=== PATIENT | male | born 1980 | race Caucasian/White ===

== ENCOUNTER 2022-02-05 10:54 | Emergency (ER) | payer OTHER, SELFPAY ==
[2022-02-05 11:34] VITALS: BP 142/95; PULSE 83; RESP 16; TEMP 36.9; O2SAT 97
--- NOTE | 2022-02-05 11:55 | ED.URI ---
HPI - URI/Sore Throat General Chief Complaint: Upper Respiratory Infection Stated Complaint: soerthroat Time Seen by Provider: 02/05/22 11:55 History of Present Illness HPI Narrative: 41-year-old male presented for complaint of sore throat, fatigue and mild sinus congestion, onset today. Pain is worse with swallowing. Denies shortness of breath, wheezing, nausea, vomiting, diarrhea, fevers or chills. He denies sick contacts. He has taken Tylenol, ibuprofen, and Mucinex for symptoms. Related Data Allergies Allergy/AdvReac Type Severity Reaction Status Date / Time No Known Allergies Allergy Verified 02/05/22 11:54 Review of Systems Review of Systems: Per HPI [facility] Past Medical History Medical History HTN (hypertension) Exam Narrative: GENERAL: Ill-appearing, no acute distress. EYES: conjunctivae clear ENT: Mucous membranes moist. TM pearly brumfield with normal light reflex bilaterally; no tragal tenderness. Oropharynx severely erythematous Tonsils enlarged 3+ with exudate. No drooling, no hoarseness, no trismus, uvula midline. No tripod positioning, hot potato voice, or soft palate swelling. CHEST: Clear to auscultation, breath sounds equal. No respiratory distress, speaks in full sentences. HEART: Regular rate and rhythm. No murmur heard. SKIN: Warm, dry, no rash. NEURO: Alert and oriented x3. Course Course Emergency Course: Patient is aware of diagnosis, understands and agrees to treatment plan. Anticipatory guidance given. Patient agrees to follow-up as directed and is aware of reasons to seek care at the emergency department. Portions of this record may have been created with voice recognition software Level of Care: Express Care Visit Vital Signs Vital signs: Vital Signs Temperature 98.5 F 02/05/22 11:34 Pulse Rate 83 02/05/22 11:34 Respiratory Rate 16 02/05/22 11:34 Blood Pressure 142/95 H 02/05/22 11:34 Pulse Oximetry 97 02/05/22 11:34 Oxygen Delivery Room Air 02/05/22 11:34 Temperature 98.5 F 02/05/22 11:34 Pulse Rate 83 02/05/22 11:34 Respiratory Rate 16 02/05/22 11:34 Blood Pressure 142/95 H 02/05/22 11:34 Pulse Oximetry 97 02/05/22 11:34 Oxygen Delivery Room Air 02/05/22 11:34 MDM - URI/Sore Throat MDM Narrative Medical decision making narrative: Due to lack of resources, unable to test for influenza or rapid strep at this time. Patient verbalizes understanding. will treat empirically based on PE and CC.Advised supportive measures and signs and symptoms to go to the ER. Patient is appropriate for outpatient treatment and follow-up. Differential Diagnosis Differential diagnosis: Likely upper respiratory infection, viral infection, influenza and pharyngitis Discharge Plan Discharge Clinical Impression: Pharyngitis Patient Disposition: Home, Self-Care Condition: Stable Instructions: Antibiotic Form, Strep Throat (ED) Additional Instructions: - Take the antibiotic as directed. Fever and sore throat typically resolve within one to three days. Most patients can return to work after 12 to 24 hours of antibiotic therapy, provided you are fever free and otherwise well. -Eat and drink things that are easy to swallow, like soft foods, cool liquids, tea with honey, or popsicles . -Salt water gargles and/or may use topical anesthetic ( Chloraseptic spray) or lozenges to relieve dryness or throat pain -Alternate Tylenol and ibuprofen as needed for pain and fever as directed. -Frequent hand washing or hand director epidemiology is one of the best ways to prevent spread of infection. Throw away the toothbrush after 24hours of antibiotic. -Follow up with primary care provider in 2-3 days if condition is not improving -Go to the ER if you have trouble breathing, cannot drink enough fluids, have muffled voice or drooling, difficulty opening your mouth, or severe swelling. Prescripti
== END 2022-02-05 12:15 | disposition home or self-care (01) ==
PROVIDERS: Emergency Provider Nurse Practitioner Family
DX: J02.9 Acute pharyngitis, unspecified (principal); I10 Essential (primary) hypertension
CPT/HCPCS: 99213; G0463